=== PATIENT | male | born 1950 | race Hispanic/Latino ===

== ENCOUNTER 2020-09-13 02:40 | Emergency (ER) | payer MEDICARE ==
[~2020-09-13] VITALS: Ht 180.3 cm; Wt 108.9 kg
[2020-09-13 03:31] LABS: CLARITY,URINE CLOUDY (CLEAR); COLOR,URINE AMBER (YELLOW); KETONES,URINE NEGATIVE (NEGATIVE); LEUKOCYTE ESTERASE ,URINE LARGE (NEGATIVE); NITRITE,URINE POSITIVE (NEGATIVE); PROTEIN,URINE DIPSTICK 2+ (NEGATIVE); URINE UROBILINOGEN 0.2 mg/dL (0.2 - 1)
[2020-09-13 03:39] LABS: BACTERIA,URINE MANY /HPF; EPITHELIAL CELLS,URINE FEW /LPF; RBC,URINE 21-50 /HPF (0-5)
[2020-09-13] MEDS ORDERED: BACTRIM DS TAB1 EACH PO (03:39)
== END 2020-09-13 04:02 | disposition home or self-care (01) ==
LOC: ER 02:48
DX: Z46.6 Encounter for fitting and adjustment of urinary device (principal); I10 Essential (primary) hypertension; E03.9 Hypothyroidism, unspecified; K21.9 Gastro-esophageal reflux disease without esophagitis; Z86.73 Personal history of transient ischemic attack (TIA), and cerebral infarction without residual deficits
CPT/HCPCS: 51700; 81001; 87086; 87186; 99282

== ENCOUNTER 2021-05-24 17:13 | Inpatient (IN) | payer MEDICARE ==
[~2021-05-24] VITALS: Ht 180.3 cm; Wt 108.9 kg
[~2021-05-24 17:13] MED LIST: BACTRIM DS TAB1 EACH PO
[2021-05-24] MEDS ORDERED: CEFTRIAXONE 1 GM in SODIUM CHLORIDE 0.9% 50ML 50 ML IV ONE (17:45)
[2021-05-24] MEDS ORDERED: ACETAMINOPHEN 325 MG TAB PO ONE (17:45)
[2021-05-24 17:50] LABS: BASOPHILS # (AUTO) 0.1 (0.0-0.1); BASOPHILS % 0.5 % (0.0-1.0); EOSINOPHILS # (AUTO) 0.1 (0.0-0.4); EOSINOPHILS % 0.4 % (0.0-6.0); HEMATOCRIT 31.4 % (38.2-49.6); HEMOGLOBIN 9.6 g/dL (14.0-18.0); LYMPHOCYTES # (AUTO) 1.5 (1.0-3.2); LYMPHOCYTES % 9.6 % (18.0-39.1); MEAN CORPUSCULAR HEMOGLOBIN 24.4 pg (28-32); MEAN CORPUSCULAR HGB CONC 30.6 g/dL (31-35); MEAN CORPUSCULAR VOLUME 79.7 fL (81-99); MONOCYTES # (AUTO) 1.4 (0.2-0.8); MONOCYTES % 9.1 % (4.4-11.3); NEUTROPHILS # (AUTO) 12.2 (2.1-6.9); NEUTROPHILS % 79.9 % (38.7-80.0); PLATELET COUNT 330 x10e3/uL (140-360); RED BLOOD COUNT 3.94 x10e6/uL (4.3-5.7); RED CELL DISTRIBUTION WIDTH 15.9 % (11.7-14.4)
[2021-05-24 18:07] LABS: ALBUMIN 2.8 g/dL (3.5-5.0); ALBUMIN/GLOBULIN RATIO 0.6 (0.8-2.0); ANION GAP 16.7 mmol/L (8-16); CALCIUM 8.1 mg/dL (8.4-10.2); CREATININE, SERUM 1.36 mg/dL (0.72-1.25)
[2021-05-24 18:12] LABS: CLARITY,URINE HAZY (CLEAR); COLOR,URINE YELLOW (YELLOW)
[2021-05-24 18:13] LABS: CREATINE KINASE MB 0.3 ng/mL (0-5.0)
[2021-05-24 18:18] LABS: KETONES,URINE NEGATIVE (NEGATIVE); LEUKOCYTE ESTERASE ,URINE LARGE (NEGATIVE); NITRITE,URINE NEGATIVE (NEGATIVE); PROTEIN,URINE DIPSTICK 2+ (NEGATIVE); URINE UROBILINOGEN 0.2 mg/dL (0.2 - 1)
[2021-05-24 18:19] LABS: EPITHELIAL CELLS,URINE FEW /LPF; WBC,URINE (MAN) >50 /HPF (0-5)
[2021-05-24 18:20] LABS: AMORPHOUS SEDIMENT,URINE FEW (FEW); BACTERIA,URINE MODERATE /HPF; MUCUS,URINE FEW (RARE)
[2021-05-24 18:37] LABS: POTASSIUM 2.7 mmol/L (3.5-5.1)
[2021-05-24] MEDS ORDERED: ONDANSETRON HCL INJ 2MG/ML 2ML 2 MG/ML VIAL IV PRN (19:00)
[2021-05-24] MEDS ORDERED: SODIUM CHLORIDE 0.9% 1000ML 1,000 ML IV SCH (19:00)
[2021-05-24] MEDS ORDERED: Morphine 2mg Syringe 2 MG/ML SYR IV PRN (19:00)
[2021-05-24] MEDS ORDERED: POTASSIUM CHLORIDE 20 MEQ TAB CR PO STA ×2 (19:12→22:53)
[2021-05-24] MEDS: KCL 20MEQ/.9 SOD CHL 1,000 ML IV SCH (19:45)
[2021-05-24 22:00] VITALS: BP 110/64
[2021-05-24 22:14] VITALS: BP 110/64
[2021-05-24] MEDS ORDERED: DOCUSATE SODIUM 100 MG CAP PO PRN (23:00)
[2021-05-24] MEDS ORDERED: HYDRALAZINE HCL 20 MG/ML VIAL IV PRN (23:00)
[2021-05-24] MEDS ORDERED: MAGNESIUM/ALUMINUM/SIMETHICONE 30 ML UDC PO PRN (23:00)
[2021-05-25] VITALS (7 sets, daily range): BP systolic 101–154; BP diastolic 57–72
[2021-05-25] MEDS ORDERED: PROTONIX20 MG PO (00:23)
[2021-05-25] MEDS ORDERED: ATORVASTATIN CA40 MG PO (00:23)
[2021-05-25] MEDS ORDERED: ASPIRIN81 MG PO (00:23)
[2021-05-25] MEDS ORDERED: WARFARIN SODIUM3 MG PO (00:23)
[2021-05-25] MEDS ORDERED: METFORMIN HCL500 M2 PO (00:23)
[2021-05-25] MEDS ORDERED: NIFEDIPINE ER30 M1 PO (00:23)
[2021-05-25] MEDS ORDERED: LEVOTHYROXINE200 MCG PO (00:23)
[2021-05-25] MEDS ORDERED: ASPIRIN 81 MG CHEW TAB PO ONE ×2 (01:30)
[2021-05-25 02:57] LABS: CREATINE KINASE MB 0.4 ng/mL (0-5.0)
[2021-05-25 05:43] LABS: BASOPHILS # (AUTO) 0.1 (0.0-0.1); BASOPHILS % 0.4 % (0.0-1.0); EOSINOPHILS # (AUTO) 0.3 (0.0-0.4); EOSINOPHILS % 2.4 % (0.0-6.0); HEMATOCRIT 31.7 % (38.2-49.6); HEMOGLOBIN 9.8 g/dL (14.0-18.0); LYMPHOCYTES # (AUTO) 1.5 (1.0-3.2); MEAN CORPUSCULAR HEMOGLOBIN 24.7 pg (28-32); MEAN CORPUSCULAR HGB CONC 30.9 g/dL (31-35); MEAN CORPUSCULAR VOLUME 79.8 fL (81-99); MONOCYTES # (AUTO) 1.1 (0.2-0.8); MONOCYTES % 9.2 % (4.4-11.3); NEUTROPHILS # (AUTO) 8.7 (2.1-6.9); NEUTROPHILS % 74.5 % (38.7-80.0); PLATELET COUNT 305 x10e3/uL (140-360); RED BLOOD COUNT 3.97 x10e6/uL (4.3-5.7); RED CELL DISTRIBUTION WIDTH 15.8 % (11.7-14.4)
[2021-05-25 06:12] LABS: ALBUMIN 2.6 g/dL (3.5-5.0); ALBUMIN/GLOBULIN RATIO 0.6 (0.8-2.0); ANION GAP 13.1 mmol/L (8-16); CREATININE, SERUM 1.28 mg/dL (0.72-1.25); POTASSIUM 3.1 mmol/L (3.5-5.1)
[2021-05-25] MEDS: KCL 20MEQ/.9 SOD CHL 1,000 ML IV SCH ×2 (06:16→18:15)
[2021-05-25 06:31] LABS: MAGNESIUM 1.4 MG/DL (1.3-2.1); PHOSPHORUS 2.2 MG/DL (2.3-4.7)
[2021-05-25] MEDS: PANTOPRAZOLE SOD 40 MG TABEC PO SCH (06:34)
[2021-05-25 06:51] LABS: FERRITIN 312.83 ng/mL (21.81-274.66); THYROID STIMULATING HORMONE 4.687 uIU/mL (0.350-4.940)
[2021-05-25 07:34] LABS: CREATINE KINASE MB 0.4 ng/mL (0-5.0)
[2021-05-25 08:28] LABS: INR 3.12; PROTHROMBIN TIME 34.5 seconds (11.9-14.5)
[2021-05-25 08:30] LABS: PARTIAL THROMBOPLASTIN TIME 91.7 seconds (23.8-35.5)
[2021-05-25] MEDS: POTASSIUM CHLORIDE 20 MEQ TAB CR PO SCH (08:48)
[2021-05-25] MEDS: CEFTRIAXONE 1 GM in SODIUM CHLORIDE 0.9% 50ML 50 ML IV SCH (08:48)
[2021-05-25] MEDS: MULTIVITAMINS/MINERALS TAB PO SCH (08:48)
[2021-05-25] MEDS ORDERED: ONDANSETRON HCL 4 MG ORAL DISINTEGRATING TAB PO PRN (16:45)
[2021-05-25] MEDS: WARFARIN SOD 5 MG TAB PO SCH (18:00)
[2021-05-25] MEDS: FERROUS SULFATE 325 MG TAB PO SCH (18:00)
[2021-05-25] MEDS: SALINE 0.65% NAS SOLN 1 SPRAY BTL SCH (18:14)
[2021-05-25] MEDS: IPRATROPIUM BROMIDE 0.06% 42 MCG NASPR NS SCH (18:14)
[2021-05-25] MEDS: TAMSULOSIN HCL 0.4 MG CAP PO SCH (20:21)
[2021-05-25] MEDS: ACETAMINOPHEN 325 MG TAB PO PRN (21:52)
[2021-05-26] VITALS (8 sets, daily range): BP systolic 122–152; BP diastolic 52–80
[2021-05-26 06:53] LABS: ANION GAP 13.9 mmol/L (8-16); CALCIUM 9.1 mg/dL (8.4-10.2); MAGNESIUM 1.6 MG/DL (1.3-2.1)
[2021-05-26 07:28] LABS: POTASSIUM 2.9 mmol/L (3.5-5.1)
[2021-05-26] MEDS: PANTOPRAZOLE SOD 40 MG TABEC PO SCH (07:30)
[2021-05-26] MEDS: FERROUS SULFATE 325 MG TAB PO SCH ×2 (09:08→17:32)
[2021-05-26] MEDS: MULTIVITAMINS/MINERALS TAB PO SCH (09:09)
[2021-05-26] MEDS: CEFTRIAXONE 1 GM in SODIUM CHLORIDE 0.9% 50ML 50 ML IV SCH (09:10)
[2021-05-26] MEDS: IPRATROPIUM BROMIDE 0.06% 42 MCG NASPR NS SCH ×3 (09:11→21:00)
[2021-05-26] MEDS: SALINE 0.65% NAS SOLN 1 SPRAY BTL SCH ×3 (09:11→21:00)
[2021-05-26] MEDS ORDERED: POTASSIUM CHLORIDE 20 MEQ TAB CR PO ONE (09:30)
[2021-05-26] MEDS ORDERED: POTASSIUM CHLORIDE 20MEQ/100ML 100 ML IV ONE (09:30)
[2021-05-26] MEDS ORDERED: MAGNESIUM SULFATE 2GM/50ML 100 ML IV ONE (09:30)
[2021-05-26] MEDS: POTASSIUM CHLORIDE 20 MEQ TAB CR PO SCH (10:10)
[2021-05-26] MEDS: METOPROLOL SUCCINATE 25 MG TAB XL PO SCH (10:10)
[2021-05-26] MEDS: ASPIRIN 81 MG CHEW TAB PO SCH (10:10)
[2021-05-26 11:04] LABS: INR 2.45; PROTHROMBIN TIME 28.5 seconds (11.9-14.5)
[2021-05-26] MEDS: KCL 20MEQ/.9 SOD CHL 1,000 ML IV SCH (12:34)
[2021-05-26] MEDS: PIPERACILLIN/TAZOBACTAM 3.375 GM in SODIUM CHLORIDE 0.9% 50ML 50 ML IV SCH ×2 (15:05→20:45)
[2021-05-26] MEDS: WARFARIN SOD 5 MG TAB PO SCH (17:32)
[2021-05-26] MEDS: ATORVASTATIN 40 MG TAB PO SCH (20:45)
[2021-05-26] MEDS: ACETAMINOPHEN 325 MG TAB PO PRN (20:45)
[2021-05-26] MEDS: TAMSULOSIN HCL 0.4 MG CAP PO SCH (20:45)
[2021-05-27] VITALS (8 sets, daily range): BP systolic 109–143; BP diastolic 51–90
[2021-05-27] MEDS: PIPERACILLIN/TAZOBACTAM 3.375 GM in SODIUM CHLORIDE 0.9% 50ML 50 ML IV SCH ×4 (02:59→20:42)
[2021-05-27] MEDS: PANTOPRAZOLE SOD 40 MG TABEC PO SCH (08:13)
[2021-05-27] MEDS: FERROUS SULFATE 325 MG TAB PO SCH ×2 (08:13→16:48)
[2021-05-27] MEDS: METOPROLOL SUCCINATE 25 MG TAB XL PO SCH (08:16)
[2021-05-27] MEDS: MULTIVITAMINS/MINERALS TAB PO SCH (08:16)
[2021-05-27] MEDS: SALINE 0.65% NAS SOLN 1 SPRAY BTL SCH ×2 (08:16→15:06)
[2021-05-27] MEDS: ASPIRIN 81 MG CHEW TAB PO SCH (08:16)
[2021-05-27] MEDS: IPRATROPIUM BROMIDE 0.06% 42 MCG NASPR NS SCH ×2 (08:16→15:06)
[2021-05-27] MEDS: KCL 20MEQ/.9 SOD CHL 1,000 ML IV SCH (08:19)
[2021-05-27] MEDS: POTASSIUM CHLORIDE 20 MEQ TAB CR PO SCH (08:20)
[2021-05-27 09:42] LABS: INR 2.31; PROTHROMBIN TIME 27.2 seconds (11.9-14.5)
[2021-05-27 09:43] LABS: ANION GAP 13.2 mmol/L (8-16); POTASSIUM 3.2 mmol/L (3.5-5.1)
[2021-05-27] MEDS ORDERED: POTASSIUM CHLORIDE 20 MEQ TAB CR PO NR (10:11)
[2021-05-27] MEDS: WARFARIN SOD 5 MG TAB PO SCH ×2 (16:48→16:59)
[2021-05-27] MEDS: ACETAMINOPHEN 325 MG TAB PO PRN (17:15)
[2021-05-27] MEDS: ALBUTEROL/IPRATROPIUM 3 ML NEB NEB PRN (17:25)
[2021-05-27] MEDS: ATORVASTATIN 40 MG TAB PO SCH (20:42)
[2021-05-27] MEDS: TAMSULOSIN HCL 0.4 MG CAP PO SCH (20:42)
[2021-05-28] VITALS (7 sets, daily range): BP systolic 128–151; BP diastolic 67–86
[2021-05-28] MEDS: PIPERACILLIN/TAZOBACTAM 3.375 GM in SODIUM CHLORIDE 0.9% 50ML 50 ML IV SCH ×3 (03:00→15:00)
[2021-05-28] MEDS: KCL 20MEQ/.9 SOD CHL 1,000 ML IV SCH (04:02)
[2021-05-28 06:23] LABS: BASOPHILS # (AUTO) 0.1 (0.0-0.1); BASOPHILS % 0.7 % (0.0-1.0); EOSINOPHILS # (AUTO) 0.5 (0.0-0.4); EOSINOPHILS % 6.6 % (0.0-6.0); HEMOGLOBIN 10.3 g/dL (14.0-18.0); LYMPHOCYTES # (AUTO) 2.3 (1.0-3.2); LYMPHOCYTES % 27.6 % (18.0-39.1); MEAN CORPUSCULAR HEMOGLOBIN 24.5 pg (28-32); MEAN CORPUSCULAR HGB CONC 30.3 g/dL (31-35); MONOCYTES # (AUTO) 0.5 (0.2-0.8); MONOCYTES % 6.4 % (4.4-11.3); NEUTROPHILS # (AUTO) 4.8 (2.1-6.9); NEUTROPHILS % 58.2 % (38.7-80.0); PLATELET COUNT 397 x10e3/uL (140-360); RED CELL DISTRIBUTION WIDTH 15.9 % (11.7-14.4)
[2021-05-28 07:22] LABS: ALBUMIN 2.8 g/dL (3.5-5.0); ALBUMIN/GLOBULIN RATIO 0.8 (0.8-2.0); ANION GAP 16.5 mmol/L (8-16); CALCIUM 7.8 mg/dL (8.4-10.2); CHOL/HDL RATIO 5.7 (3.9-4.7); CREATININE, SERUM 1.02 mg/dL (0.72-1.25); MAGNESIUM 1.9 MG/DL (1.3-2.1); POTASSIUM 3.5 mmol/L (3.5-5.1)
[2021-05-28] MEDS: PANTOPRAZOLE SOD 40 MG TABEC PO SCH (07:30)
[2021-05-28] MEDS: FERROUS SULFATE 325 MG TAB PO SCH ×2 (08:00→17:00)
[2021-05-28] MEDS: IPRATROPIUM BROMIDE 0.06% 42 MCG NASPR NS SCH ×2 (09:00→15:00)
[2021-05-28] MEDS: ASPIRIN 81 MG CHEW TAB PO SCH (09:00)
[2021-05-28] MEDS: METOPROLOL SUCCINATE 25 MG TAB XL PO SCH (09:00)
[2021-05-28] MEDS: MULTIVITAMINS/MINERALS TAB PO SCH (09:00)
[2021-05-28] MEDS: SALINE 0.65% NAS SOLN 1 SPRAY BTL SCH ×2 (09:00→15:00)
[2021-05-28] MEDS: POTASSIUM CHLORIDE 20 MEQ TAB CR PO SCH (09:00)
[2021-05-28] MEDS ORDERED: POTASSIUM CHLORIDE 20 MEQ TAB CR PO STA (10:14)
[2021-05-28] MEDS: ALBUTEROL/IPRATROPIUM 3 ML NEB NEB PRN (10:56)
[2021-05-28] MEDS ORDERED: MAGNESIUM SULFATE 2GM/50ML 50 ML IV ONE (11:00)
[2021-05-28] MEDS ORDERED: SULFAMETHOXAZOLE PO (14:33)
[2021-05-28] MEDS ORDERED: TRIMETHOPRIM PO (14:33)
[2021-05-28] MEDS: WARFARIN SOD 5 MG TAB PO SCH (17:00)
[2021-05-28] MEDS ORDERED: TOPROL XL25 MG PO (19:25)
[2021-05-28] MEDS ORDERED: COLACE100 MG PO (19:25)
[2021-05-28] MEDS ORDERED: Ferrous Sulfate PO (19:25)
[2021-05-28] MEDS ORDERED: FLOMAX0.4 MG PO (19:25)
[2021-05-28] MEDS ORDERED: BACTRIM DS TAB1 EACH PO (19:45)
[2021-05-28] MEDS ORDERED: Albuterol/Ipratropium Nebulize NEB (20:14)
== END 2021-05-28 22:14 | disposition home or self-care (01) | DRG 872 ==
LOC: ER 17:40 → ERHOLD 19:09 → MED/SURG2 20:54 → OBSVTOIN 05-26 11:37
PROVIDERS: ADMIT Internal Medicine; ATTEND Internal Medicine
DX: A41.51 Sepsis due to Escherichia coli [E. coli] (principal); N39.0 Urinary tract infection, site not specified; N17.9 Acute kidney failure, unspecified; I69.351 Hemiplegia and hemiparesis following cerebral infarction affecting right dominant side; N13.30 Unspecified hydronephrosis; D64.9 Anemia, unspecified; E03.9 Hypothyroidism, unspecified; E87.6 Hypokalemia; E83.51 Hypocalcemia; E88.09 Other disorders of plasma-protein metabolism, not elsewhere classified; I12.9 Hypertensive chronic kidney disease with stage 1 through stage 4 chronic kidney disease, or unspecified chronic kidney disease; N18.30 Chronic kidney disease, stage 3 unspecified; J02.9 Acute pharyngitis, unspecified; E78.5 Hyperlipidemia, unspecified; E11.22 Type 2 diabetes mellitus with diabetic chronic kidney disease; Z99.3 Dependence on wheelchair; I71.4 Abdominal aortic aneurysm, without rupture; Z79.01 Long term (current) use of anticoagulants; N40.1 Benign prostatic hyperplasia with lower urinary tract symptoms; R35.1 Nocturia; E66.9 Obesity, unspecified; Z68.33 Body mass index [BMI] 33.0-33.9, adult; N31.9 Neuromuscular dysfunction of bladder, unspecified; R33.9 Retention of urine, unspecified; Z20.822 Contact with and (suspected) exposure to COVID-19
CPT/HCPCS: 36415; 71045; 74018; 74176; 80048; 80053; 80061; 81001; 82550; 82553; 82728; 82948; 83518; 83540; 83605; 83735; 84100; 84443; 84466; 84484; 85025; 85610; 85730; 87040; 87070; 87086; 87186; 93005; 93306; 93925; 94640; 94799; 96361; 99284; G0378; J0696; J2543; J3475; J3480; U0002

== ENCOUNTER 2023-09-23 11:23 | Inpatient (IN) | payer MEDICARE ==
[~2023-09-23] VITALS: Ht 332.7 cm; Wt 108.9 kg
[~2023-09-23 11:23] MED LIST changes: +ASPIRIN81 MG PO; +ATORVASTATIN CA40 MG PO; +Albuterol/Ipratropium Nebulize NEB; +COLACE100 MG PO; +FLOMAX0.4 MG PO; +Ferrous Sulfate PO; +LEVOTHYROXINE200 MCG PO; +METFORMIN HCL500 M2 PO; +NIFEDIPINE ER30 M1 PO; +PROTONIX20 MG PO; +SULFAMETHOXAZOLE PO; +TOPROL XL25 MG PO; +TRIMETHOPRIM PO; +WARFARIN SODIUM3 MG PO; +WARFARIN SODIUM5 MG PO
[2023-09-23] MEDS ORDERED: LIDOCAINE HCL 2% LOCAL INJ 5 ML SDV VIAL INJ ONE (13:12)
[2023-09-23] MEDS ORDERED: DEXAMETHASONE SOD PHOS INJ 4 MG/ML SDV ONE (13:12)
[2023-09-23] MEDS ORDERED: SEVOFLURANE INHAL SOLN 250 ML PEN BTL ONE (13:12)
[2023-09-23] MEDS ORDERED: ONDANSETRON HCL INJ 2MG/ML 2ML 2 MG/ML VIAL ONE (13:12)
[2023-09-23] MEDS ORDERED: PROPOFOL IV EMULSION 10 MG/ML 20 ML VIAL ONE (13:12)
[2023-09-23] MEDS ORDERED: EPHEDRINE SULFATE INJ 50 MG/ML VIAL ONE (13:12)
[2023-09-23] MEDS: ONDANSETRON HCL INJ 2MG/ML 2ML 2 MG/ML VIAL IV STA (13:53)
[2023-09-23] MEDS: Morphine 4mg INJECTION 4 MG/ML INJ IV STA (13:53)
[2023-09-23 14:06] LABS: BILIRUBIN,URINE NEGATIVE (NEGATIVE); CLARITY,URINE HAZY (CLEAR); COLOR,URINE YELLOW (YELLOW); GLUCOSE, URINE NEGATIVE (NEGATIVE); KETONES,URINE NEGATIVE (NEGATIVE); LEUKOCYTE ESTERASE ,URINE LARGE (NEGATIVE); NITRITE,URINE NEGATIVE (NEGATIVE); PH,URINE 7.5 (5 - 7); PROTEIN,URINE DIPSTICK 2+ (NEGATIVE); URINE UROBILINOGEN 0.2 mg/dL (0.2 - 1)
[2023-09-23 14:09] LABS: BASOPHILS # (AUTO) 0.1 (0.0-0.1); BASOPHILS % 0.6 % (0.0-1.0); EOSINOPHILS # (AUTO) 0.2 (0.0-0.4); EOSINOPHILS % 1.2 % (0.0-6.0); HEMATOCRIT 36.8 % (38.2-49.6); HEMOGLOBIN 11.8 g/dL (14.0-18.0); LYMPHOCYTES # (AUTO) 1.3 (1.0-3.2); MEAN CORPUSCULAR HEMOGLOBIN 28.2 pg (28-32); MEAN CORPUSCULAR HGB CONC 32.1 g/dL (31-35); MEAN CORPUSCULAR VOLUME 87.8 fL (81-99); MONOCYTES # (AUTO) 1.1 (0.2-0.8); MONOCYTES % 6.8 % (4.4-11.3); NEUTROPHILS # (AUTO) 13.3 (2.1-6.9); NEUTROPHILS % 83.2 % (38.7-80.0); PLATELET COUNT 328 x10e3/uL (140-360); RED BLOOD COUNT 4.19 x10e6/uL (4.3-5.7); WHITE BLOOD COUNT 16.04 x10e3/uL (4.8-10.8)
[2023-09-23 14:15] LABS: BACTERIA,URINE MANY /HPF; WBC,URINE (MAN) 21-50 /HPF (0-5)
[2023-09-23 14:17] LABS: INR 1.02; PARTIAL THROMBOPLASTIN TIME 28.8 seconds (23.8-35.5); PROTHROMBIN TIME 13.6 seconds (11.9-14.5)
[2023-09-23 14:26] LABS: ALBUMIN 3.5 g/dL (3.5-5.0); ALBUMIN/GLOBULIN RATIO 0.8 (0.8-2.0); ANION GAP 16.3 mmol/L (8-16); BILIRUBIN,TOTAL 0.8 mg/dL (0.2-1.2); CALCIUM 9.2 mg/dL (8.4-10.2); CREATININE, SERUM 5.19 mg/dL (0.72-1.25); POTASSIUM 4.3 mmol/L (3.5-5.1); TOTAL PROTEIN 7.8 g/dL (6.5-8.1)
[2023-09-23] MEDS ORDERED: ONDANSETRON HCL INJ 2MG/ML 2ML 2 MG/ML VIAL IV PRN (17:45)
[2023-09-23 18:19] LABS: TROPONIN I 0.004 ng/mL (0-0.300)
[2023-09-23] MEDS ORDERED: Vancomycin IV 1 GM VIAL ONE (20:35)
[2023-09-23] MEDS ORDERED: SODIUM CHLORIDE 0.9% 250ML 250 ML ONE (20:36)
[2023-09-23] MEDS ORDERED: CEFEPIME HCL 1 GM VIAL ONE (20:37)
[2023-09-23] MEDS: Vancomycin IV 1 GM in SODIUM CHLORIDE 0.9% 250ML 250 ML IV ONE (21:03)
[2023-09-23 23:55] VITALS: BP 136/68; O2SAT 98
[2023-09-24] VITALS (7 sets, daily range): BP systolic 126–148; BP diastolic 56–99; PULSE 71–89; RESP 18; TEMP 97.6–99.7; O2SAT 96–99
[2023-09-24] MEDS ORDERED: CALCITRIOL0.25 MCG (00:35)
[2023-09-24] MEDS ORDERED: PANTOPRAZOLE SO40 MG (00:35)
[2023-09-24] MEDS ORDERED: METFORMIN HCL500 MG (00:35)
[2023-09-24] MEDS ORDERED: NIFEDIPINE ER90 MG (00:35)
[2023-09-24] MEDS ORDERED: FINASTERIDE5 MG (00:35)
[2023-09-24] MEDS ORDERED: ASPIRIN EC81 MG (00:35)
[2023-09-24] MEDS ORDERED: METOPROLOL SUC100 MG PO (00:35)
[2023-09-24] MEDS ORDERED: TAMSULOSIN (00:35)
[2023-09-24] MEDS ORDERED: ATORVASTATIN CA40 MG (00:35)
[2023-09-24] MEDS ORDERED: WARFARIN SODIUM6 MG (00:35)
[2023-09-24 07:14] LABS: BASOPHILS # (AUTO) 0.1 (0.0-0.1); BASOPHILS % 0.5 % (0.0-1.0); EOSINOPHILS # (AUTO) 0.3 (0.0-0.4); EOSINOPHILS % 2.8 % (0.0-6.0); HEMATOCRIT 32.3 % (38.2-49.6); HEMOGLOBIN 9.8 g/dL (14.0-18.0); LYMPHOCYTES # (AUTO) 1.7 (1.0-3.2); MEAN CORPUSCULAR HEMOGLOBIN 27.3 pg (28-32); MEAN CORPUSCULAR HGB CONC 30.3 g/dL (31-35); MONOCYTES % 9.3 % (4.4-11.3); NEUTROPHILS # (AUTO) 7.8 (2.1-6.9); PLATELET COUNT 283 x10e3/uL (140-360); RED BLOOD COUNT 3.59 x10e6/uL (4.3-5.7); RED CELL DISTRIBUTION WIDTH 15.9 % (11.7-14.4); WHITE BLOOD COUNT 10.89 x10e3/uL (4.8-10.8)
[2023-09-24 08:19] LABS: ALBUMIN 2.7 g/dL (3.5-5.0); ALBUMIN/GLOBULIN RATIO 0.8 (0.8-2.0); ANION GAP 15.5 mmol/L (8-16); CALCIUM 8.2 mg/dL (8.4-10.2); CREATININE, SERUM 5.76 mg/dL (0.72-1.25); POTASSIUM 4.5 mmol/L (3.5-5.1); TOTAL PROTEIN 6.3 g/dL (6.5-8.1)
[2023-09-24 08:28] LABS: TROPONIN I 0.004 ng/mL (0-0.300)
[2023-09-24 08:44] LABS: URIC ACID 6.7 mg/dL (4.8-8.0)
[2023-09-24] MEDS ORDERED: CEFTRIAXONE 1 GM VIAL IM ONE (09:00)
[2023-09-24] MEDS ORDERED: CEFTRIAXONE 1 GM VIAL IV ONE (09:30)
[2023-09-24] MEDS ORDERED: IOPAMIDOL 610MG/1ML 300 MG/ML VIAL IV ONE (11:00)
[2023-09-24] MEDS: SEVELAMER CARBONATE 800 MG TAB PO SCH (12:46)
[2023-09-24 14:02] LABS: TROPONIN I 0.011 ng/mL (0-0.300)
[2023-09-24] MEDS ORDERED: FENTANYL CITRATE/PF 100MCG/2 ML INJ ONE (16:58)
[2023-09-25] VITALS (8 sets, daily range): BP systolic 104–136; BP diastolic 51–60; PULSE 65–89; RESP 18–20; TEMP 97.5–98.6; O2SAT 98–100
[2023-09-25 06:56] LABS: BASOPHILS % 0.1 % (0.0-1.0); EOSINOPHILS % 0.1 % (0.0-6.0); HEMATOCRIT 31.4 % (38.2-49.6); LYMPHOCYTES # (AUTO) 1.2 (1.0-3.2); MEAN CORPUSCULAR HEMOGLOBIN 27.9 pg (28-32); MEAN CORPUSCULAR HGB CONC 31.8 g/dL (31-35); MEAN CORPUSCULAR VOLUME 87.7 fL (81-99); MONOCYTES % 6.5 % (4.4-11.3); NEUTROPHILS # (AUTO) 13.1 (2.1-6.9); NEUTROPHILS % 84.9 % (38.7-80.0); PLATELET COUNT 229 x10e3/uL (140-360); RED BLOOD COUNT 3.58 x10e6/uL (4.3-5.7); RED CELL DISTRIBUTION WIDTH 15.9 % (11.7-14.4); WHITE BLOOD COUNT 15.43 x10e3/uL (4.8-10.8)
[2023-09-25 07:18] LABS: ALBUMIN 2.8 g/dL (3.5-5.0); ALBUMIN/GLOBULIN RATIO 0.7 (0.8-2.0); BILIRUBIN,TOTAL 0.6 mg/dL (0.2-1.2); CALCIUM 8.5 mg/dL (8.4-10.2); CREATININE, SERUM 7.12 mg/dL (0.72-1.25); TOTAL PROTEIN 6.8 g/dL (6.5-8.1)
[2023-09-25] MEDS ORDERED: ALBUMIN 25% 12.5GM 0.25 GM/ML BTL IV PRN (10:15)
[2023-09-25] MEDS ORDERED: HEPARIN SOD (PORCINE) 1000 UNIT/ML 10ML MDV IV PRN (10:15)
[2023-09-25] MEDS ORDERED: TAMSULOSIN HCL 0.4 MG CAP PO SCH (10:45)
[2023-09-25] MEDS ORDERED: HEPARIN 500 UNITS/5ML MDV INJ PRN (12:30)
[2023-09-25] MEDS ORDERED: HEPARIN SOD (PORCINE) 1000 UNIT/ML SDV IV PRN (13:00)
[2023-09-25] MEDS: GENTAMICIN 120MG/NS 100ML 100 ML IV ONE (14:36)
[2023-09-25] MEDS: TAMSULOSIN HCL 0.4 MG CAP PO SCH (20:18)
[2023-09-25] MEDS: Morphine 2mg Syringe 2 MG/ML SYR IV PRN (20:23)
[2023-09-26] VITALS (7 sets, daily range): BP systolic 104–141; BP diastolic 50–63; PULSE 70–79; RESP 18; TEMP 97.7–98.3; O2SAT 97–100
[2023-09-26 09:24] LABS: BASOPHILS # (AUTO) 0.1 (0.0-0.1); BASOPHILS % 0.4 % (0.0-1.0); EOSINOPHILS # (AUTO) 0.2 (0.0-0.4); EOSINOPHILS % 1.7 % (0.0-6.0); HEMATOCRIT 30.2 % (38.2-49.6); HEMOGLOBIN 9.8 g/dL (14.0-18.0); LYMPHOCYTES # (AUTO) 1.9 (1.0-3.2); LYMPHOCYTES % 15.4 % (18.0-39.1); MEAN CORPUSCULAR HEMOGLOBIN 28.2 pg (28-32); MEAN CORPUSCULAR HGB CONC 32.5 g/dL (31-35); MEAN CORPUSCULAR VOLUME 86.8 fL (81-99); MONOCYTES % 8.6 % (4.4-11.3); NEUTROPHILS # (AUTO) 8.9 (2.1-6.9); NEUTROPHILS % 73.7 % (38.7-80.0); PLATELET COUNT 230 x10e3/uL (140-360); RED BLOOD COUNT 3.48 x10e6/uL (4.3-5.7); RED CELL DISTRIBUTION WIDTH 15.8 % (11.7-14.4); WHITE BLOOD COUNT 12.06 x10e3/uL (4.8-10.8)
[2023-09-27] VITALS (9 sets, daily range): BP systolic 94–133; BP diastolic 50–76; PULSE 71–79; RESP 18–21; TEMP 97.6–98.2; O2SAT 98–100
[2023-09-27 06:03] LABS: BASOPHILS # (AUTO) 0.1 (0.0-0.1); BASOPHILS % 0.8 % (0.0-1.0); EOSINOPHILS # (AUTO) 0.4 (0.0-0.4); HEMATOCRIT 27.6 % (38.2-49.6); LYMPHOCYTES % 20.8 % (18.0-39.1); MEAN CORPUSCULAR HEMOGLOBIN 28.1 pg (28-32); MEAN CORPUSCULAR HGB CONC 32.6 g/dL (31-35); MEAN CORPUSCULAR VOLUME 86.3 fL (81-99); MONOCYTES # (AUTO) 0.8 (0.2-0.8); MONOCYTES % 8.2 % (4.4-11.3); NEUTROPHILS # (AUTO) 6.5 (2.1-6.9); NEUTROPHILS % 65.9 % (38.7-80.0); PLATELET COUNT 233 x10e3/uL (140-360); RED CELL DISTRIBUTION WIDTH 15.3 % (11.7-14.4); WHITE BLOOD COUNT 9.83 x10e3/uL (4.8-10.8)
[2023-09-27 06:34] LABS: ANION GAP 15.2 mmol/L (8-16); CREATININE, SERUM 5.8 mg/dL (0.72-1.25); POTASSIUM 4.2 mmol/L (3.5-5.1)
[2023-09-27] MEDS ORDERED: ONDANSETRON HCL 4 MG ORAL DISINTEGRATING TAB PO PRN (11:45)
[2023-09-27] MEDS ORDERED: DOCUSATE SODIUM 100 MG CAP PO PRN (20:30)
[2023-09-27] MEDS: ACETAMINOPHEN 325 MG TAB PO PRN (21:38)
[2023-09-28] VITALS: BP 109/50; PULSE 76; RESP 19; TEMP 98; O2SAT 99
[2023-09-28 01:02] VITALS: BP 133/60; PULSE 71; RESP 18; TEMP 98; O2SAT 100
[2023-09-28 05:31] VITALS: BP 114/55; PULSE 69; RESP 19; TEMP 98; O2SAT 93
[2023-09-28 08:00] VITALS: BP 112/53; PULSE 64; RESP 19; TEMP 97.9; O2SAT 100
[2023-09-28] MEDS ORDERED: METOPROLOL SUCCINATE 25 MG TAB XL PO SCH (09:00)
[2023-09-28 09:20] LABS: HEPATITIS B CORE AB TOTAL Negative (Negative)
[2023-09-28] MEDS: ASPIRIN 81 MG CHEW TAB PO SCH (11:08)
[2023-09-28] MEDS: PANTOPRAZOLE SOD 40 MG TABEC PO SCH (11:09)
[2023-09-28] MEDS: FINASTERIDE 5 MG TAB PO SCH (11:09)
[2023-09-28] MEDS: CALCITRIOL 0.25 MCG CAP PO SCH (11:09)
[2023-09-28] MEDS: ATORVASTATIN 40 MG TAB PO SCH (11:09)
[2023-09-28] MEDS ORDERED: SODIUM CHLORIDE 0.9% 1000ML 2,000 ML ONE (11:29)
[2023-09-28 12:00] VITALS: BP 117/67; PULSE 70; RESP 20; TEMP 97.6; O2SAT 100
[2023-09-28 16:00] VITALS: BP 147/69; PULSE 78; RESP 19; TEMP 97.7; O2SAT 100
[2023-09-28] MEDS ORDERED: CIPRO250 MG PO (16:19)
[2023-09-28] MEDS ORDERED: ELIQUIS2.5 MG PO (16:19)
[2023-09-29 05:37] LABS: HEPATITIS B SURFACE AG (P) Negative (Negative)
== END 2023-09-28 18:42 | disposition home or self-care (01) | DRG 659 ==
LOC: ER 11:37 → ERHOLD 17:36 → MED/SURG3 19:28
PROVIDERS: ADMIT Internal Medicine; ATTEND Internal Medicine
PROC: 0TP5X0Z Removal of Drainage Device from Kidney, External Approach (ICD-10-PCS; 2023-09-24)
PROC: 0TP5X0Z Removal of Drainage Device from Kidney, External Approach (ICD-10-PCS; 2023-09-24)
PROC: BT141ZZ Fluoroscopy of Kidneys, Ureters and Bladder using Low Osmolar Contrast (ICD-10-PCS; principal; 2023-09-24 10:27)
PROC: 0T788DZ Dilation of Bilateral Ureters with Intraluminal Device, Via Natural or Artificial Opening Endoscopic (ICD-10-PCS; 2023-09-24 10:27)
PROC: 5A1D70Z Performance of Urinary Filtration, Intermittent, Less than 6 Hours Per Day (ICD-10-PCS; 2023-09-28)
DX: T83.092A Other mechanical complication of nephrostomy catheter, initial encounter (principal); N18.6 End stage renal disease; N13.6 Pyonephrosis; I12.0 Hypertensive chronic kidney disease with stage 5 chronic kidney disease or end stage renal disease; Z16.24 Resistance to multiple antibiotics; N13.8 Other obstructive and reflux uropathy; E11.22 Type 2 diabetes mellitus with diabetic chronic kidney disease; B96.89 Other specified bacterial agents as the cause of diseases classified elsewhere; E11.65 Type 2 diabetes mellitus with hyperglycemia; Z11.52 Encounter for screening for COVID-19; K21.9 Gastro-esophageal reflux disease without esophagitis; I71.40 Abdominal aortic aneurysm, without rupture, unspecified; K40.20 Bilateral inguinal hernia, without obstruction or gangrene, not specified as recurrent; N32.3 Diverticulum of bladder; I69.398 Other sequelae of cerebral infarction; N45.1 Epididymitis; N43.3 Hydrocele, unspecified; N40.1 Benign prostatic hyperplasia with lower urinary tract symptoms; Z99.2 Dependence on renal dialysis; Z79.84 Long term (current) use of oral hypoglycemic drugs; Z99.3 Dependence on wheelchair
CPT/HCPCS: 36415; 74018; 74176; 74420; 76870; 80048; 80053; 81001; 82550; 82948; 84484; 84550; 85025; 85610; 85730; 86704; 86706; 87086; 87186; 87340; 87350; 93976; 99284; C1758; C2617; J0692; J0696; J1100; J1580; J1644; J2001; J2185; J2270; J2405; J7030; J7050; U0002

== ENCOUNTER 2024-01-06 11:54 | Inpatient (IN) | payer MEDICARE ==
[2024-01-06] VITALS (19 sets, daily range): BP systolic 100–134; BP diastolic 47–62; PULSE 74–95; RESP 12–26; TEMP 97.4–97.8; O2SAT 96–100
[~2024-01-06] VITALS: Ht 180.3 cm; Wt 109.3 kg
[~2024-01-06 11:54] MED LIST changes: +ASPIRIN EC81 MG; +ATORVASTATIN CA40 MG; +CALCITRIOL0.25 MCG; +CIPRO250 MG PO; +ELIQUIS2.5 MG PO; +FINASTERIDE5 MG; +METFORMIN HCL500 MG; +METOPROLOL SUC100 MG PO; +NIFEDIPINE ER90 MG; +PANTOPRAZOLE SO40 MG; +TAMSULOSIN; +WARFARIN SODIUM6 MG
[2024-01-06 12:33] LABS: BASOPHILS % 0.2 % (0.0-1.0); EOSINOPHILS # (AUTO) 0.4 (0.0-0.4); EOSINOPHILS % 1.9 % (0.0-6.0); LYMPHOCYTES # (AUTO) 3.3 (1.0-3.2); LYMPHOCYTES % 17.5 % (18.0-39.1); MEAN CORPUSCULAR HEMOGLOBIN 27.1 pg (28-32); MEAN CORPUSCULAR HGB CONC 30.8 g/dL (31-35); MONOCYTES # (AUTO) 1.2 (0.2-0.8); MONOCYTES % 6.3 % (4.4-11.3); NEUTROPHILS # (AUTO) 13.7 (2.1-6.9); NEUTROPHILS % 73.6 % (38.7-80.0); PLATELET COUNT 397 x10e3/uL (140-360); RED BLOOD COUNT 1.33 x10e6/uL (4.3-5.7); RED CELL DISTRIBUTION WIDTH 17.9 % (11.7-14.4); WHITE BLOOD COUNT 18.64 x10e3/uL (4.8-10.8)
[2024-01-06 12:36] LABS: HEMATOCRIT 11.7 % (38.2-49.6); HEMOGLOBIN 3.6 g/dL (14.0-18.0); INR 2.94; PARTIAL THROMBOPLASTIN TIME 39.7 seconds (23.8-35.5); PROTHROMBIN TIME 32.1 seconds (11.9-14.5)
[2024-01-06] MEDS ORDERED: PROPOFOL IV EMULSION 10 MG/ML 20 ML VIAL ONE (12:44)
[2024-01-06] MEDS ORDERED: LIDOCAINE HCL 2% LOCAL INJ 5 ML SDV VIAL INJ ONE (12:44)
[2024-01-06] MEDS ORDERED: ETOMIDATE 2 MG/ML 10 ML INJ IV ONE (12:44)
[2024-01-06 12:51] LABS: ALBUMIN 2.6 g/dL (3.5-5.0); ALBUMIN/GLOBULIN RATIO 0.8 (0.8-2.0); BILIRUBIN,TOTAL 0.3 mg/dL (0.2-1.2); CALCIUM 7.6 mg/dL (8.4-10.2); CREATININE, SERUM 8.11 mg/dL (0.72-1.25); POTASSIUM 4.5 mmol/L (3.5-5.1)
[2024-01-06] MEDS: SODIUM CHLORIDE 0.9% 500ML 500 ML IV ONE (13:04)
[2024-01-06 13:06] LABS: MAGNESIUM 1.8 MG/DL (1.3-2.1)
[2024-01-06 13:09] LABS: ANION GAP 25.5 mmol/L (8-16)
[2024-01-06 13:11] LABS: TROPONIN I 0.002 ng/mL (0-0.300)
[2024-01-06] MEDS ORDERED: ONDANSETRON HCL INJ 2MG/ML 2ML 2 MG/ML VIAL IV PRN (13:30)
[2024-01-06] MEDS ORDERED: DOCUSATE SODIUM 100 MG CAP PO PRN (15:00)
[2024-01-06] MEDS ORDERED: IOPAMIDOL 370 MG/ML 100 ML INFUS..BTL INJ ONE (15:20)
[2024-01-06] MEDS: SODIUM CHLORIDE 0.9% 1000ML 0 ML ONE (17:54)
[2024-01-06] MEDS: SODIUM CHLORIDE 0.9% 250ML 250 ML ONE (17:56)
[2024-01-06] MEDS: SODIUM CHLORIDE 0.9% 1000ML 2,000 ML ONE (17:57)
[2024-01-06] MEDS ORDERED: SODIUM CHLORIDE 0.9% 1000ML 2,000 ML IV PRN (18:15)
[2024-01-06] MEDS ORDERED: HEPARIN SOD (PORCINE) 1000 UNIT/ML SDV IV PRN (18:15)
[2024-01-06 20:43] LABS: TROPONIN I 0.097 ng/mL (0-0.300)
[2024-01-06] MEDS: ATORVASTATIN 40 MG TAB PO SCH (20:49)
[2024-01-07] VITALS (43 sets, daily range): BP systolic 81–156; BP diastolic 37–106; PULSE 72–90; RESP 11–22; TEMP 97.8–98.7; O2SAT 96–100
[2024-01-07 06:17] LABS: TOTAL IRON BINDING CAPACITY 249 ug/dL (261-478); TRANSFERRIN 178 mg/dL (174-364)
[2024-01-07 06:39] LABS: FOLATE 8.6 ng/mL (7.0-15.4)
[2024-01-07 07:13] LABS: % IRON SATURATION 46 % (15-50); IRON 115 ug/dL (65-175)
[2024-01-07 07:18] LABS: RED BLOOD COUNT 1.74 x10e6/uL (4.3-5.7); WHITE BLOOD COUNT 13.82 x10e3/uL (4.8-10.8)
[2024-01-07 07:19] LABS: BASOPHILS # (AUTO) 0.1 (0.0-0.1); BASOPHILS % 0.5 % (0.0-1.0); EOSINOPHILS # (AUTO) 0.4 (0.0-0.4); EOSINOPHILS % 3.1 % (0.0-6.0); LYMPHOCYTES # (AUTO) 1.8 (1.0-3.2); LYMPHOCYTES % 13.3 % (18.0-39.1); MEAN CORPUSCULAR HEMOGLOBIN 28.7 pg (28-32); MEAN CORPUSCULAR HGB CONC 32.1 g/dL (31-35); MEAN CORPUSCULAR VOLUME 89.7 fL (81-99); MONOCYTES # (AUTO) 0.9 (0.2-0.8); MONOCYTES % 6.4 % (4.4-11.3); NEUTROPHILS # (AUTO) 10.5 (2.1-6.9); NEUTROPHILS % 76.2 % (38.7-80.0); PLATELET COUNT 281 x10e3/uL (140-360)
[2024-01-07 07:21] LABS: HEMATOCRIT 15.6 % (38.2-49.6)
[2024-01-07 07:41] LABS: CHOL/HDL RATIO 5.6 (3.9-4.7); TROPONIN I 0.288 ng/mL (0-0.300)
[2024-01-07 07:57] LABS: BILIRUBIN,TOTAL 0.4 mg/dL (0.2-1.2); CALCIUM 7.8 mg/dL (8.4-10.2); CREATININE, SERUM 5.17 mg/dL (0.72-1.25)
[2024-01-07 07:58] LABS: ALBUMIN 2.5 g/dL (3.5-5.0); ALBUMIN/GLOBULIN RATIO 0.8 (0.8-2.0); TOTAL PROTEIN 5.7 g/dL (6.5-8.1)
[2024-01-07 08:01] LABS: INR 1.68; PROTHROMBIN TIME 20.8 seconds (11.9-14.5)
[2024-01-07] MEDS: SODIUM CHLORIDE 0.9% 250ML 250 ML IV ONE (08:57)
[2024-01-07 11:59] LABS: OCCULT BLOOD STOOL POSITIVE (NEGATIVE)
[2024-01-07 15:54] LABS: BASOPHILS # (AUTO) 0.1 (0.0-0.1); BASOPHILS % 0.7 % (0.0-1.0); EOSINOPHILS # (AUTO) 0.4 (0.0-0.4); EOSINOPHILS % 3.5 % (0.0-6.0); LYMPHOCYTES # (AUTO) 1.3 (1.0-3.2); LYMPHOCYTES % 10.8 % (18.0-39.1); MEAN CORPUSCULAR HEMOGLOBIN 29.1 pg (28-32); MEAN CORPUSCULAR HGB CONC 32.4 g/dL (31-35); MONOCYTES # (AUTO) 0.6 (0.2-0.8); MONOCYTES % 5.2 % (4.4-11.3); NEUTROPHILS # (AUTO) 9.4 (2.1-6.9); NEUTROPHILS % 79.2 % (38.7-80.0); PLATELET COUNT 273 x10e3/uL (140-360); RED CELL DISTRIBUTION WIDTH 15.4 % (11.7-14.4); WHITE BLOOD COUNT 11.84 x10e3/uL (4.8-10.8)
[2024-01-07 15:55] LABS: HEMATOCRIT 20.7 % (38.2-49.6); HEMOGLOBIN 6.7 g/dL (14.0-18.0)
[2024-01-08] VITALS (35 sets, daily range): BP systolic 102–164; BP diastolic 32–76; PULSE 61–87; RESP 12–20; TEMP 97.6–98.2; O2SAT 84–100
[2024-01-08] MEDS: CYANOCOBALAMIN INJ 1,000 MCG/ML VIAL IM ONE (02:18)
[2024-01-08 07:25] LABS: BASOPHILS % 0.2 % (0.0-1.0); EOSINOPHILS # (AUTO) 0.4 (0.0-0.4); EOSINOPHILS % 3.5 % (0.0-6.0); HEMATOCRIT 22.4 % (38.2-49.6); HEMOGLOBIN 7.1 g/dL (14.0-18.0); LYMPHOCYTES # (AUTO) 1.9 (1.0-3.2); LYMPHOCYTES % 15.2 % (18.0-39.1); MEAN CORPUSCULAR HEMOGLOBIN 29.3 pg (28-32); MEAN CORPUSCULAR HGB CONC 31.7 g/dL (31-35); MEAN CORPUSCULAR VOLUME 92.6 fL (81-99); MONOCYTES # (AUTO) 1.1 (0.2-0.8); MONOCYTES % 8.5 % (4.4-11.3); NEUTROPHILS # (AUTO) 8.9 (2.1-6.9); PLATELET COUNT 244 x10e3/uL (140-360); RED BLOOD COUNT 2.42 x10e6/uL (4.3-5.7); RED CELL DISTRIBUTION WIDTH 15.9 % (11.7-14.4); WHITE BLOOD COUNT 12.41 x10e3/uL (4.8-10.8)
[2024-01-08 08:06] LABS: MAGNESIUM 1.8 MG/DL (1.3-2.1); PHOSPHORUS 3.5 MG/DL (2.3-4.7)
[2024-01-08 08:08] LABS: ALBUMIN 2.6 g/dL (3.5-5.0); ALBUMIN/GLOBULIN RATIO 0.8 (0.8-2.0); ANION GAP 13.1 mmol/L (8-16); BILIRUBIN,TOTAL 0.5 mg/dL (0.2-1.2); CALCIUM 8.1 mg/dL (8.4-10.2); CREATININE, SERUM 5.35 mg/dL (0.72-1.25); POTASSIUM 4.1 mmol/L (3.5-5.1); TOTAL PROTEIN 5.7 g/dL (6.5-8.1)
[2024-01-08] MEDS: CYANOCOBALAMIN INJ 1,000 MCG/ML VIAL IM SCH (09:55)
[2024-01-08] MEDS ORDERED: SODIUM CHLORIDE 0.9% 250ML 250 ML IV ONE (11:00)
[2024-01-09] VITALS (20 sets, daily range): BP systolic 106–174; BP diastolic 47–95; PULSE 61–86; RESP 10–24; TEMP 97.7–98.2; O2SAT 90–100
[2024-01-09 08:59] LABS: BASOPHILS # (AUTO) 0.1 (0.0-0.1); BASOPHILS % 0.8 % (0.0-1.0); EOSINOPHILS # (AUTO) 0.5 (0.0-0.4); EOSINOPHILS % 4.2 % (0.0-6.0); HEMATOCRIT 31.1 % (38.2-49.6); LYMPHOCYTES % 15.4 % (18.0-39.1); MEAN CORPUSCULAR HEMOGLOBIN 29.5 pg (28-32); MEAN CORPUSCULAR HGB CONC 32.2 g/dL (31-35); MEAN CORPUSCULAR VOLUME 91.7 fL (81-99); MONOCYTES # (AUTO) 0.9 (0.2-0.8); MONOCYTES % 7.2 % (4.4-11.3); NEUTROPHILS # (AUTO) 9.3 (2.1-6.9); PLATELET COUNT 266 x10e3/uL (140-360); RED BLOOD COUNT 3.39 x10e6/uL (4.3-5.7); RED CELL DISTRIBUTION WIDTH 17.5 % (11.7-14.4); WHITE BLOOD COUNT 12.97 x10e3/uL (4.8-10.8)
[2024-01-09 09:14] LABS: INR 1.04; PROTHROMBIN TIME 14.3 seconds (11.9-14.5)
[2024-01-09] MEDS ORDERED: BENZOCAINE/TETRACAINE/BUTAMBEN AERO SPRAY 56 GM CAN ONE (14:20)
[2024-01-10] VITALS (9 sets, daily range): BP systolic 115–162; BP diastolic 47–71; PULSE 64–76; RESP 17–18; TEMP 97.4–98.3; O2SAT 100
[2024-01-10 06:07] LABS: HEPATITIS B CORE AB TOTAL Negative; HEPATITIS B SURFACE AG (P) Negative
[2024-01-10] MEDS: SODIUM CHLORIDE 0.9% 250ML 250 ML ONE ×2 (09:53→17:51)
[2024-01-10] MEDS: SODIUM CHLORIDE 0.9% 250ML 250 ML IV ONE ×4 (09:53→17:50)
[2024-01-10] MEDS ORDERED: ONDANSETRON HCL 4 MG ORAL DISINTEGRATING TAB PO PRN (15:00)
[2024-01-11] VITALS (9 sets, daily range): BP systolic 126–157; BP diastolic 46–72; PULSE 63–79; RESP 18; TEMP 97.7–98.5; O2SAT 99–100
[2024-01-11 05:28] LABS: BASOPHILS % 0.3 % (0.0-1.0); EOSINOPHILS # (AUTO) 0.6 (0.0-0.4); EOSINOPHILS % 5.5 % (0.0-6.0); HEMATOCRIT 27.3 % (38.2-49.6); HEMOGLOBIN 8.7 g/dL (14.0-18.0); LYMPHOCYTES # (AUTO) 1.8 (1.0-3.2); LYMPHOCYTES % 16.2 % (18.0-39.1); MEAN CORPUSCULAR HEMOGLOBIN 29.8 pg (28-32); MEAN CORPUSCULAR HGB CONC 31.9 g/dL (31-35); MEAN CORPUSCULAR VOLUME 93.5 fL (81-99); MONOCYTES # (AUTO) 0.9 (0.2-0.8); MONOCYTES % 7.9 % (4.4-11.3); NEUTROPHILS # (AUTO) 7.5 (2.1-6.9); NEUTROPHILS % 69.7 % (38.7-80.0); PLATELET COUNT 302 x10e3/uL (140-360); RED BLOOD COUNT 2.92 x10e6/uL (4.3-5.7); RED CELL DISTRIBUTION WIDTH 17.4 % (11.7-14.4); WHITE BLOOD COUNT 10.78 x10e3/uL (4.8-10.8)
[2024-01-11 06:14] LABS: CALCIUM 7.1 mg/dL (8.4-10.2)
[2024-01-11 06:49] LABS: CREATININE, SERUM 8.88 mg/dL (0.72-1.25)
[2024-01-11] MEDS ORDERED: HEPARIN SOD (PORCINE) 1000 UNIT/ML SDV IV PRN (09:45)
[2024-01-12] VITALS (9 sets, daily range): BP systolic 99–131; BP diastolic 57–86; PULSE 65–81; RESP 18–20; TEMP 97.7–98.6; O2SAT 95–100
[2024-01-12] MEDS ORDERED: IOPAMIDOL 610MG/1ML 300 MG/ML VIAL IV ONE (10:41)
[2024-01-12] MEDS ORDERED: SEVOFLURANE INHAL SOLN 250 ML PEN BTL ONE (12:30)
[2024-01-12] MEDS ORDERED: PHENAZOPYRIDINE HCL 100 MG TAB PO PRN (12:30)
[2024-01-12] MEDS ORDERED: ONDANSETRON HCL INJ 2MG/ML 2ML 2 MG/ML VIAL ONE (12:30)
[2024-01-12] MEDS ORDERED: ACETAMINOPHEN/CODEINE 300MG - 30MG TAB PO PRN (12:30)
[2024-01-12] MEDS ORDERED: PROPOFOL IV EMULSION 10 MG/ML 20 ML VIAL ONE (12:30)
[2024-01-12] MEDS ORDERED: EPHEDRINE SULFATE INJ 50 MG/ML VIAL ONE (12:30)
[2024-01-12] MEDS ORDERED: LIDOCAINE HCL 2% LOCAL INJ 5 ML SDV VIAL INJ ONE (12:30)
[2024-01-12] MEDS ORDERED: MIDAZOLAM HCL 2 MG/2 ML VIAL ONE (14:47)
[2024-01-12] MEDS ORDERED: FENTANYL CITRATE/PF 100MCG/2 ML INJ ONE (14:47)
[2024-01-13] VITALS: BP 124/59; PULSE 68; RESP 18; TEMP 97.8; O2SAT 100
[2024-01-13 04:00] VITALS: BP_SYST 103; BP_SYST 108; BP_DIAS 53; BP_DIAS 58; PULSE 60; PULSE 63; RESP 17; TEMP 97.9; TEMP 98.4; O2SAT 100; O2SAT 96
[2024-01-13 06:52] LABS: BILIRUBIN,URINE NEGATIVE (NEGATIVE); CLARITY,URINE CLOUDY (CLEAR); COLOR,URINE RED (YELLOW); GLUCOSE, URINE 1+ (NEGATIVE); KETONES,URINE NEGATIVE (NEGATIVE); LEUKOCYTE ESTERASE ,URINE LARGE (NEGATIVE); NITRITE,URINE NEGATIVE (NEGATIVE); PH,URINE 8.5 (5 - 7); PROTEIN,URINE DIPSTICK >=300 (NEGATIVE); URINE UROBILINOGEN 0.2 mg/dL (0.2 - 1)
[2024-01-13 07:00] LABS: BACTERIA,URINE MODERATE /HPF; EPITHELIAL CELLS,URINE FEW /LPF; RBC,URINE >50 /HPF (0-5); WBC,URINE (MAN) 21-50 /HPF (0-5)
[2024-01-13 08:49] VITALS: BP 108/53; PULSE 63; RESP 17; TEMP 97.9; O2SAT 100
[2024-01-13 09:17] LABS: BASOPHILS # (AUTO) 0.1 (0.0-0.1); BASOPHILS % 0.7 % (0.0-1.0); EOSINOPHILS # (AUTO) 0.6 (0.0-0.4); EOSINOPHILS % 5.7 % (0.0-6.0); HEMATOCRIT 27.8 % (38.2-49.6); HEMOGLOBIN 8.6 g/dL (14.0-18.0); LYMPHOCYTES # (AUTO) 1.5 (1.0-3.2); MEAN CORPUSCULAR HGB CONC 30.9 g/dL (31-35); MEAN CORPUSCULAR VOLUME 93.6 fL (81-99); MONOCYTES # (AUTO) 0.8 (0.2-0.8); MONOCYTES % 7.8 % (4.4-11.3); NEUTROPHILS # (AUTO) 7.1 (2.1-6.9); NEUTROPHILS % 70.6 % (38.7-80.0); PLATELET COUNT 293 x10e3/uL (140-360); RED BLOOD COUNT 2.97 x10e6/uL (4.3-5.7); RED CELL DISTRIBUTION WIDTH 17.2 % (11.7-14.4); WHITE BLOOD COUNT 10.05 x10e3/uL (4.8-10.8)
[2024-01-13 12:00] VITALS: BP 131/61; PULSE 66; RESP 18; TEMP 97.9; O2SAT 100
[2024-01-13] MEDS ORDERED: SODIUM CHLORIDE 0.9% 250ML 500 ML IV PRN (12:15)
[2024-01-13 16:00] VITALS: BP 158/70; PULSE 62; RESP 18; TEMP 97.7; O2SAT 100
[2024-01-13 20:00] VITALS: BP 117/54; PULSE 65; RESP 18; TEMP 98.5; O2SAT 96
[2024-01-14] VITALS (7 sets, daily range): BP systolic 107–135; BP diastolic 49–68; PULSE 59–71; RESP 14–16; TEMP 97.5–99.1; O2SAT 94–100
[2024-01-14] MEDS: PIPERACILLIN/TAZOBACTAM SOD 2.25 GM VIAL ONE (10:08)
== END 2024-01-14 15:33 | disposition home or self-care (01) | DRG 659 ==
LOC: ER 12:06 → MERGE 12:06 → UNMERGE 13:37 → MERGE 13:37 → ERHOLD 13:37 → ICU 15:42 → MED/SURG2 01-09 22:37
PROVIDERS: ADMIT Internal Medicine; ATTEND Internal Medicine
PROC: 5A1D70Z Performance of Urinary Filtration, Intermittent, Less than 6 Hours Per Day (ICD-10-PCS; principal; 2024-01-06)
PROC: 30233N1 Transfusion of Nonautologous Red Blood Cells into Peripheral Vein, Percutaneous Approach (ICD-10-PCS; 2024-01-06)
PROC: 30233K1 Transfusion of Nonautologous Frozen Plasma into Peripheral Vein, Percutaneous Approach (ICD-10-PCS; 2024-01-06)
PROC: 5A1D70Z Performance of Urinary Filtration, Intermittent, Less than 6 Hours Per Day (ICD-10-PCS; 2024-01-07)
PROC: 30233N1 Transfusion of Nonautologous Red Blood Cells into Peripheral Vein, Percutaneous Approach (ICD-10-PCS; 2024-01-07)
PROC: 30233K1 Transfusion of Nonautologous Frozen Plasma into Peripheral Vein, Percutaneous Approach (ICD-10-PCS; 2024-01-07)
PROC: 5A1D70Z Performance of Urinary Filtration, Intermittent, Less than 6 Hours Per Day (ICD-10-PCS; 2024-01-08)
PROC: 30233N1 Transfusion of Nonautologous Red Blood Cells into Peripheral Vein, Percutaneous Approach (ICD-10-PCS; 2024-01-08)
PROC: 0DB78ZX Excision of Stomach, Pylorus, Via Natural or Artificial Opening Endoscopic, Diagnostic (ICD-10-PCS; 2024-01-09)
PROC: 0T788DZ Dilation of Bilateral Ureters with Intraluminal Device, Via Natural or Artificial Opening Endoscopic (ICD-10-PCS; 2024-01-12)
PROC: 0TP98DZ Removal of Intraluminal Device from Ureter, Via Natural or Artificial Opening Endoscopic (ICD-10-PCS; 2024-01-12)
PROC: BT141ZZ Fluoroscopy of Kidneys, Ureters and Bladder using Low Osmolar Contrast (ICD-10-PCS; 2024-01-12)
DX: I12.0 Hypertensive chronic kidney disease with stage 5 chronic kidney disease or end stage renal disease (principal); K29.51 Unspecified chronic gastritis with bleeding; N18.6 End stage renal disease; D68.9 Coagulation defect, unspecified; I69.351 Hemiplegia and hemiparesis following cerebral infarction affecting right dominant side; N13.1 Hydronephrosis with ureteral stricture, not elsewhere classified; D63.1 Anemia in chronic kidney disease; E87.8 Other disorders of electrolyte and fluid balance, not elsewhere classified; Z46.6 Encounter for fitting and adjustment of urinary device; E11.22 Type 2 diabetes mellitus with diabetic chronic kidney disease; Z99.2 Dependence on renal dialysis; N31.9 Neuromuscular dysfunction of bladder, unspecified; N32.81 Overactive bladder; R32 Unspecified urinary incontinence; L98.9 Disorder of the skin and subcutaneous tissue, unspecified; K40.90 Unilateral inguinal hernia, without obstruction or gangrene, not specified as recurrent; E78.5 Hyperlipidemia, unspecified; E66.9 Obesity, unspecified; Z68.33 Body mass index [BMI] 33.0-33.9, adult; Z71.3 Dietary counseling and surveillance; G89.4 Chronic pain syndrome; M54.9 Dorsalgia, unspecified; Z99.3 Dependence on wheelchair; Z86.718 Personal history of other venous thrombosis and embolism; Z79.01 Long term (current) use of anticoagulants; Z79.899 Other long term (current) drug therapy
CPT/HCPCS: 36415; 70450; 71045; 74177; 76000; 78278; 80048; 80053; 80061; 81001; 82270; 82550; 82607; 82746; 82948; 83540; 83735; 84100; 84132; 84466; 84484; 85025; 85045; 85610; 85730; 86704; 86706; 86850; 86900; 86920; 87040; 87086; 87340; 88305; 88312; 88342; 90962; 93005; 93306; 93970; 94799; 99252; 99285; A9512; C1758; C2617; J1644; J2001; J2250; J2405; J2470; J2543; J3420; J7030; J7040; J7050; P9016; P9017; Q9967; U0002